=== PATIENT | female | born 1985 | race African-American/Black ===

== ENCOUNTER 2016-12-31 13:15 | Emergency (ER) | payer SELFPAY ==
[~2016-12-31] VITALS: Ht 165.1 cm; Wt 85.7 kg
[2016-12-31] MEDS ORDERED: Ketorolac 30mg Inj IM ONE (13:45)
[2016-12-31 13:56] VITALS: BP 142/99
[2016-12-31] MEDS ORDERED: Norco 5mg/325mg tab ORAL ONE (14:00)
--- NOTE | 2016-12-31 14:39 | Diagnostic Imaging Report ---
Indications: Left shoulder pain Technique: 3 views of the left shoulder Findings: Comparison: None No fracture, dislocation, lytic destruction, periosteal reaction, surrounding soft tissue swelling, or other acute change is demonstrated. No deformity, alignment abnormality, arthritic change, soft tissue calcification, or other chronic change is demonstrated. IMPRESSION: Negative left shoulder series.
--- NOTE | 2016-12-31 14:39 | Diagnostic Imaging Report ---
Indication: Chest pain Technique: PA and lateral views of the chest. Findings: Comparison: None The bones and extra pulmonary soft tissues, cardiomediastinal silhouette, pulmonary vasculature and parenchyma, and pleural surfaces are unremarkable. IMPRESSION: Negative PA and lateral chest radiographs
--- NOTE | 2016-12-31 15:06 | Diagnostic Imaging Report ---
Indications: Neck pain since fall down to the physis there is 2 days ago Technique: Continuous helical CT imaging of the cervical spine performed with automatic exposure was on a Siemens sensation [address] scanner. Axial, coronal and sagittal images reconstructed at 3 mm slice thicknesses. CTDI volume(s): 16 mGy Total DLP: 366 mGy-cm Findings: Comparison: None. Lordotic curvature is right and.Vertebral alignment is intact. No fracture, facet subluxation or dislocation, prevertebral soft tissue swelling, or other acute changes are demonstrated. No degenerative or other chronic changes are demonstrated. IMPRESSION: Straightening of cervical lordosis. This may be secondary to positioning and/or muscular spasm. Otherwise negative noncontrast CT scan of the cervical spine-no other evidence of acute injury. The CT scanner at [facility] is accredited by the [employer] and the scans are performed using protocols designed to limit radiation exposure to as low as reasonably achievable to attain images of sufficient resolution adequate for diagnostic evaluation.
[2016-12-31] MEDS ORDERED: CYCLOBENZAPRINE10 MG ORAL (15:14)
[2016-12-31] MEDS ORDERED: NORCO 5-325 TA1 EAC1 ORAL (15:14)
[2016-12-31] MEDS ORDERED: IBUPROFEN600 MG ORAL (15:14)
[2016-12-31 15:35] VITALS: BP 116/67
--- NOTE | 2016-12-31 22:34 | Emergency Room Report ---
History of Present Illness General Chief Complaint: Pain Source: Patient Present Illness HPI The patient is a 31-year-old female presenting with neck pain, shoulder pain, and rib pain after falling down the stairs last night. She denies hitting her head or loss of consciousness. Pain described as a 10 out of 10 dull ache and does not radiate from these areas. She states that it is difficult to breathe due to the pain. She denies any numbness or tingling. She has tried over-the- counter medications which have not helped with the pain. She denies any other symptoms including nausea, vomiting, dizziness, blurred vision, cough Allergies: Coded Allergies: ACETAMINOPHEN (Verified Allergy, Unknown, 12/31/16) CODEINE (Verified Allergy, Unknown, 12/31/16) KETOROLAC (Verified Allergy, Unknown, 12/31/16) Uncoded Allergies: TYLENOL #3 (Allergy, Unknown, 12/31/16) Patient History Past Medical History: see triage record Pertinent Family History: none Last Menstrual Period: 12/21/16 Reviewed Nursing Documentation: PMH: Agreed, PSxH: Agreed Nursing Documentation-PMH Past Medical History: No History, Except For Review of Systems All Other Systems: negative except mentioned in HPI Physical Exam Vital Signs Date Time Temp Pulse Resp B/P Pulse Ox O2 Delivery O2 Flow Rate FiO2 12/31/16 13:18 98.4 93 20 142/99 97 Room Air Sp02 EP Interpretation: reviewed, normal General Appearance: no apparent distress, alert, GCS 15, non-toxic Head: normocephalic, atraumatic Eyes: bilateral eye PERRL, bilateral eye normal inspection ENT: hearing grossly normal, normal pharynx, no angioedema, normal voice Neck: tender lateral - bilat, tender midline - distal cervical spine Respiratory: normal inspection, lungs clear, normal breath sounds, no accessory muscle use, speaking full sentences, other - TTP over the mid sternum and adjacent ribs Cardiovascular #1: regular rate, rhythm, no edema Gastrointestinal: normal bowel sounds, non tender, soft, non-distended, no guarding, no rebound Musculoskeletal: back normal, gait/station normal, normal range of motion, tender - TTP over the L shoulder diffusely Neurologic: alert, oriented x3, responsive, motor strength/tone normal, sensory intact, speech normal Psychiatric: judgement/insight normal, memory normal, mood/affect normal, no suicidal/homicidal ideation Skin: normal color, no rash, warm/dry, well hydrated Medical Decision Making PA Attestation Dr. Rosales is my supervising physician. Patient management was discussed with my supervising physician Diagnostic Impression: Primary Impression: Muscle spasm Additional Impressions: Rib contusion Qualified Codes: S20.219A - Contusion of unspecified front wall of thorax, initial encounter Left shoulder strain Qualified Codes: S46.912A - Strain of unspecified muscle, fascia and tendon at shoulder and upper arm level, left arm, initial encounter ER Course The patient is a 31-year-old female presenting with neck pain, shoulder pain, and rib pain DDx considered but not limited to: fracture, dislocation, contusion, disc herniation, sprain, among others PE: Initially hypertensive. NAD Head is NC/AT Neck: TTP over bilat paraspinal muscles and midline C spine. No step-offs. Full AROM. TTP over the L trapezius and L shoulder. No deformity. RRR. Lungs CTA bilat. TTP over the mid sternum and adjacent ribs The patient is given pain medication and feels better CT C spine shows straightening only. Xrays unremarkable. She is FL'ed home with ER precautions and pain medication. Chest X-Ray Diagnostic Results Chest X-Ray Diagnostic Results : Chest X-Ray Ordered: Yes # of Views/Limited/Complete: 2 View Indication: Chest Pain EP Interpretation: Yes Interpretation: no consolidation, no effusion, no pneumothorax, no acute cardiopulmonary disease Impression: No acute disease Interpreting ER Provider: Dr. Connie GAGNON Scribe Text I'm acting as scribe for my supervising physician. My supervising physician's interpretation of the 2 view CXR is that there are no acute findings. Other X-Ray Diagnostic Results Other X-Ray Diagnostic Results : X-Ray ordered: L shoulder # of Views/Limited Vs Complete: 3 View Indication: Pain EP Interpretation: Yes Interpretation: no dislocation, no soft tissue swelling, no fractures Impression: No acute disease Interpreting ER Provider: Dr. Connie Matosibcarlos Text I am acting as scribe for my supervising physician. My supervising physician's interpretation of the L shoulder xrays are there are no fractures, dislocations or soft tissue swelling. CT/MRI/US Diagnostic Results CT/MRI/US Diagnostic Results : Imaging Test Ordered: CT C spine Impression Cervical straightening only Last Vital Signs Date Time Temp Pulse Resp B/P Pulse Ox O2 Delivery O2 Flow Rate FiO2 12/31/16 15:35 82 16 116/67 Room Air 12/31/16 15:13 98.4 12/31/16 13:56 97 Status: improved Disposition: HOME, SELF-CARE Condition: Improved Scripts Cyclobenzaprine Hcl* (FLEXERIL*) 10 Mg Tablet 10 MG ORAL THREE TIMES A DAY, #15 TAB Prov: CHAYO NUÑEZATon 12/31/16 Hydrocodone Bit/Acetaminophen 5-325* (NORCO 5-325 TABLET*) 1 Each Tablet 1 TAB ORAL Q6HR Y for For Pain, #10 TAB Prov: CHAYO NUÑEZ.A. 12/31/16 Ibuprofen* (MOTRIN*) 600 Mg Tablet 600 MG ORAL Q8H Y for For Pain, #30 TAB 0 Refills Prov: CHAYO NUÑEZ.ATon 12/31/16 Patient Instructions: Cervical Sprain, Heat Therapy, Rib Contusion Additional Instructions: I discussed my findings with the patient. All questions and concerns have been answered. Treatment and medication compliance have been addressed. I advised the patient that they need to follow up with PMD in 3-5 days. Return to ED if symptoms worsen, new symptoms arise, or if needed for any reason. Patient verbalized understanding of discharge instructions. CHAYO NUÑEZ Dec 31, 2016 22:34
== END 2016-12-31 15:37 | disposition home or self-care (01) ==
LOC: EMR 14:18
DX: M62.838 Other muscle spasm (principal); S20.219A Contusion of unspecified front wall of thorax, initial encounter; S46.912A Strain of unspecified muscle, fascia and tendon at shoulder and upper arm level, left arm, initial encounter; W10.9XXA Fall (on) (from) unspecified stairs and steps, initial encounter; Y93.9 Activity, unspecified; Y92.9 Unspecified place or not applicable; Z88.6 Allergy status to analgesic agent; Z88.8 Allergy status to other drugs, medicaments and biological substances
CPT/HCPCS: 71020; 72125; 99284

== ENCOUNTER 2017-05-06 12:27 | Emergency (ER) | payer MEDICAID ==
[~2017-05-06] VITALS: Ht 167.6 cm; Wt 75.3 kg
[~2017-05-06 12:27] MED LIST: CYCLOBENZAPRINE10 MG ORAL; IBUPROFEN600 MG ORAL; NORCO 5-325 TA1 EAC1 ORAL
[2017-05-06 12:35] VITALS: BP 121/78
[2017-05-06] MEDS ORDERED: TRAMADOL HCL50 MG ORAL (12:53)
[2017-05-06] MEDS ORDERED: Norco 5mg/325mg tab ORAL ONE (13:00)
--- NOTE | 2017-05-06 13:00 | Emergency Room Report ---
History of Present Illness General Chief Complaint: Pain Source: Patient Present Illness HPI The patient is a 31-year-old female presenting for pain after biopsy. She states that she had a lump in her right breast and had a core biopsy taken earlier this week. Pain started the day after and is now a 9/10 dull ache. Worse with touch. Does not radiate. She denies any rash. She denies any fever or chills. She states that she has an appointment for followup the following Wednesday. She states that she was not given any pain medication. She denies any other symptoms Allergies: Coded Allergies: ACETAMINOPHEN (Verified Allergy, Unknown, 12/31/16) CODEINE (Verified Allergy, Unknown, 12/31/16) KETOROLAC (Verified Allergy, Unknown, 12/31/16) Uncoded Allergies: TYLENOL #3 (Allergy, Unknown, 12/31/16) Patient History Past Medical History: see triage record Pertinent Family History: none Reviewed Nursing Documentation: PMH: Agreed, PSxH: Agreed Review of Systems All Other Systems: negative except mentioned in HPI Physical Exam Vital Signs Date Time Temp Pulse Resp B/P (MAP) Pulse Ox O2 Delivery O2 Flow Rate FiO2 05/06/17 12:31 97.3 99 20 121/78 98 Room Air Sp02 EP Interpretation: reviewed, normal General Appearance: no apparent distress, alert, GCS 15, non-toxic Head: normocephalic, atraumatic Eyes: bilateral eye normal inspection, bilateral eye PERRL ENT: hearing grossly normal, normal pharynx, no angioedema, normal voice Neck: full range of motion, supple/symm/no masses Respiratory: chest non-tender, lungs clear, normal breath sounds, speaking full sentences Cardiovascular #1: regular rate, rhythm, no edema Musculoskeletal: back normal, gait/station normal, normal range of motion, non- tender Neurologic: alert, oriented x3, responsive, motor strength/tone normal, sensory intact, speech normal Psychiatric: judgement/insight normal, memory normal, mood/affect normal, no suicidal/homicidal ideation Skin: normal color, no rash, warm/dry, well hydrated, wd healing/no infection noted, laceration - R lateral chest < 1cm wound well healing. No erythema. No edema. No bleeding or DC. TTP Medical Decision Making PA Attestation Dr. Espinosa is my supervising physician. Patient management was discussed with my supervising physician Diagnostic Impression: Primary Impression: Pain after biopsy ER Course The patient is a 31-year-old female presenting for pain after biopsy Differential diagnoses considered but not limited to: wound infection, abscess, cellulitis, pain medication seeking behavior PE: Afebrile. NAD R lateral chest < 1cm wound well healing. No erythema. No edema. No bleeding or DC. TTP Lungs CTA bilat CURES shows [place] prescribed approximately one week prior. The patient is given prescription for tramadol and motrin. Note, the patient states she is allergic to these medications but she is still able to take them without any complications since I am not prescribing norco. She states she does not truly have these allergies. Last Vital Signs Date Time Temp Pulse Resp B/P (MAP) Pulse Ox O2 Delivery O2 Flow Rate FiO2 05/06/17 12:35 97.3 79 20 121/78 98 Room Air Status: improved Disposition: HOME, SELF-CARE Condition: Improved Scripts Ibuprofen* (MOTRIN*) 600 Mg Tablet 600 MG ORAL Q8H Y for For Pain, #30 TAB 0 Refills Prov: CHAYO NUÑEZ.A. 05/06/17 Tramadol Hcl* (ULTRAM*) 50 Mg Tablet 50 MG ORAL Q6H Y for For Pain, #10 TAB 0 Refills Prov: CHAYO NUÑEZ.A. 05/06/17 Additional Instructions: I discussed my findings with the patient. All questions and concerns have been answered. Treatment and medication compliance have been addressed. Return to ED if symptoms worsen, new symptoms arise, or if needed for any reason. Patient verbalized understanding of discharge instructions. Please followup with your doctor on Wednesday (05/11) as you stated you would. CHAYO NUÑEZ May 06, 2017 13:00
[2017-05-06] MEDS ORDERED: IBUPROFEN600 MG ORAL (13:01)
[2017-05-06 13:22] VITALS: BP 121/78
== END 2017-05-06 13:22 | disposition home or self-care (01) ==
LOC: EMR 12:50
DX: G89.18 Other acute postprocedural pain (principal); N64.4 Mastodynia; Z88.6 Allergy status to analgesic agent
CPT/HCPCS: 99283

== ENCOUNTER 2020-08-12 11:56 | Emergency (ER) | payer MEDICAID ==
[~2020-08-12] VITALS: Ht 165.1 cm; Wt 81.6 kg
[~2020-08-12 11:56] MED LIST changes: +TRAMADOL HCL50 MG ORAL
[2020-08-12 13:45] VITALS: BP 148/90
[2020-08-12] MEDS ORDERED: Methocarbamol 500mg tab ORAL ONE (13:45)
--- NOTE | 2020-08-12 13:45 | NUR ---
pt stated she was racing her twin 4 days ago, fell and hurt her lower back. the pain hasn't stopped and she has taken motrin and tylenol.
--- NOTE | 2020-08-12 13:48 | Emergency Room Report ---
History of Present Illness General Chief Complaint: Back Injury Source: Patient Present Illness HPI Patient is a 35-year-old female denies any significant past medical history who presents to the ER complaining of back pain after fall. Patient states that she was hiking and fell 3 days ago. Patient states that she did hit her head but denies any loss of consciousness. She denies any dizziness, nausea or blurry vision. She states that she is not on any blood thinners. Patient states that she has had lower back and posterior hip pain that has not gotten better with medications that she is taking at home. She is taken NSAIDs as well as leftover pain medicine. Allergies: Coded Allergies: ACETAMINOPHEN (Verified Allergy, Unknown, 12/31/16) CODEINE (Verified Allergy, Unknown, 12/31/16) KETOROLAC (Verified Allergy, Unknown, 12/31/16) Uncoded Allergies: TYLENOL #3 (Allergy, Unknown, 12/31/16) COVID-19 Screening Contact w/high risk pt: No Experienced COVID-19 symptoms?: No COVID-19 Testing performed RESIDENTIAL SALES EXECUTIVE: No Patient History Now: No Reviewed Nursing Documentation: PMH: Agreed; PSxH: Agreed Nursing Documentation-PMH Past Medical History: No History, Except For Review of Systems All Other Systems: negative except mentioned in HPI Physical Exam Vital Signs Date Time Temp Pulse Resp B/P (MAP) Pulse Ox O2 Delivery O2 Flow Rate FiO2 08/12/20 12:33 98.1 120 15 148/90 (109) 97 Room Air Sp02 EP Interpretation: reviewed, normal General Appearance: no apparent distress, alert, GCS 15, non-toxic Head: normocephalic, atraumatic Eyes: bilateral eye normal inspection, bilateral eye PERRL ENT: hearing grossly normal, normal pharynx, no angioedema, normal voice Neck: full range of motion, supple/symm/no masses Respiratory: chest non-tender, lungs clear, normal breath sounds, speaking full sentences Cardiovascular #1: regular rate, rhythm, no edema Gastrointestinal: normal bowel sounds, non tender, soft, non-distended, no guarding, no rebound Rectal: deferred, other - No saddle anesthesia Musculoskeletal: other - Diffuse lumbar tenderness to palpation with no step- offs, bilateral posterior hip pain Neurologic: motor strength/tone normal, environmental quality analyst III-XII nml as tested, oriented x3, sensory intact Psychiatric: no suicidal/homicidal ideation Skin: no rash Lymphatic: no adenopathy Medical Decision Making Diagnostic Impression: Primary Impression: Lumbar back pain Additional Impression: Fall ER Course Patient given muscle relaxant. Patient pending CT of the lumbar spine and pelvis to rule out any acute fractures. Patient signed out to oncoming physician at 1400 pending the studies, reevaluation and final disposition. Last Vital Signs Date Time Temp Pulse Resp B/P (MAP) Pulse Ox O2 Delivery O2 Flow Rate FiO2 08/12/20 12:33 98.1 120 15 148/90 (109) 97 Room Air Condition: Unknown Physician Consult: Dr. Luis M MD at 1400 Additional Instructions: Please note that this report is being documented using [employer] technology. This can lead to erroneous entry secondary to incorrect interpretation by the dictating instrument. Sanjuana Wood M.D. Aug 12, 2020 13:48
--- NOTE | 2020-08-12 15:32 | Diagnostic Imaging Report ---
Indication: Pelvic pain status post injury Technique: CT pelvis was performed utilizing automated exposure control without intravenous contrast material. Axial, sagittal and coronal images were generated. CT dose: Total DLP 611.7 mGycm; CTDI vol 12.2 mGy Comparison: None Findings: Bone mineralization within normal limits. No acute fracture or dislocation is identified. Bilateral sacroiliac joints are maintained. Symphysis pubis is maintained. Partially imaged appendix is normal in caliber without periappendiceal inflammatory stranding. Endovaginal tampon. Cervix appears borderline prominent. There is bladder wall thickening which may relate to under distention versus cystitis. IMPRESSION: * No acute fracture or dislocation. * Borderline nonspecific prominence of the cervix. Correlation with findings most recent Pap smear and STUDIO TECHNICIAN follow-up recommended. * Bladder wall thickening which may be related to under distention versus cystitis. Consider correlation with urinalysis. The CT scanner at [facility] is accredited by the [employer] and the scans are performed using protocols designed to limit radiation exposure to as low as reasonably achievable to attain images of sufficient resolution adequate for diagnostic evaluation.
--- NOTE | 2020-08-12 15:37 | Diagnostic Imaging Report ---
Indication: Back pain status post injury Technique: CT lumbar spine was performed utilizing automated exposure control without intravenous contrast material. Axial, sagittal and coronal images were generated. CT dose: Total DLP 611.7 mGycm; CTDI vol 12.2 mGy Comparison: None Findings: There are 5 nonrib-bearing lumbar-type vertebral bodies, assuming 12 paired ribs. Lumbar lordosis is maintained; there is no evidence of spondylolisthesis. Vertebral body heights are maintained; there is no evidence of vertebral body compression fracture. No acute lumbar spine fracture is identified. Some small disc bulges noted at L4-L5 and L5-S1. Imaged portions of the visceral abdomen and pelvis demonstrated a normal caliber abdominal aorta. Calcifications noted in the bilateral lower poles of the kidneys which may represent parenchymal calcifications and/or calyceal stones. No evidence of hydronephrosis bilaterally. IMPRESSION: No evidence of acute fracture or traumatic malalignment. Very mild degenerative changes at L4-5 and L5-S1. Bilateral renal parenchymal calcifications versus nonobstructing stones. No evidence of hydronephrosis bilaterally. The CT scanner at [facility] is accredited by the [employer] and the scans are performed using protocols designed to limit radiation exposure to as low as reasonably achievable to attain images of sufficient resolution adequate for diagnostic evaluation.
[2020-08-12] MEDS ORDERED: HYDROCODON-ACE1 EA15 ORAL (15:54)
--- NOTE | 2020-08-12 15:59 | NUR ---
ER DISCHARGE NOTE: Patient is cleared to be discharged per ERMD, pt is aox4, on room air, with stable vital signs. pt was given dc and prescription instructions, pt was able to verbalize understanding. pt is able to ambulate with steady gait. pt took all belongings.
--- NOTE | 2020-08-12 15:59 | Emergency Room Report ---
Physical Exam Vital Signs Date Time Temp Pulse Resp B/P (MAP) Pulse Ox O2 Delivery O2 Flow Rate FiO2 08/12/20 12:33 98.1 120 15 148/90 (109) 97 Room Air Medical Decision Making Diagnostic Impression: Primary Impression: Lumbar back pain Additional Impressions: Renal calcification Cervix abnormality Fall ER Course Assumed care of the patient from the previous provider at approximately 1400. Please refer to initial note for full history and physical exam. Briefly, 35-year-old female presenting for lower back pain after a fall hiking. CTA pending at time of signout. CTA did not show bony injury or malalignment. Mild degenerative change noted as well as prominent cervix and possible renal calcifications versus nonobstructing stones in the renal poles. Patient provided with copies of CT reports. She will follow up with PLASMA CENTER TECHNICIAN regarding the cervical abnormalities. She has no symptoms of urinary tract infection and likely the thickened bladder wall on CT is secondary to under distention as she used the bathroom just prior to CT. She is already using ibuprofen, Tylenol, Flexeril and lidocaine patches at home. Recommended heat therapy and will provide a short course of breakthrough pain medication. Instructed not to drive or operate machinery on this medication and do not mix medications. She understands and agrees with treatment plan will follow up with outpatient sp ecialist. Last Vital Signs Date Time Temp Pulse Resp B/P (MAP) Pulse Ox O2 Delivery O2 Flow Rate FiO2 08/12/20 13:45 98.1 15 148/90 97 Room Air 08/12/20 12:33 120 Disposition: HOME, SELF-CARE Condition: Stable Scripts Hydrocodone/Acetaminophen 5-325* (HYDROCODONE/ACETAMINOPHEN 5-325*) 1 Each Tablet 1 TAB ORAL Q6H PRN for For Pain, #10 TAB 0 Refills Prov: Phong Asencio MD 08/12/20 Referrals: [facility],REFERRING (PCP) Patient Instructions: Back Pain, Adult Additional Instructions: Follow-up with your PLASMA CENTER TECHNICIAN regarding the CT findings of a prominent cervix. Pap smear and evaluation by PLASMA CENTER TECHNICIAN as recommended. Please follow-up with your primary care doctor in the next 1 to 3 days to discuss this emergency department visit and for reevaluation. If you have any new or worsening symptoms please return to the emergency department for reevaluation. Please note that this report is being documented using [employer] technology. This can lead to erroneous entry secondary to incorrect interpretation by the dictating instrument. Phong Asencio MD Aug 12, 2020 15:59
== END 2020-08-12 16:00 | disposition home or self-care (01) ==
LOC: EMR 14:40
DX: M54.5 Low back pain (principal); N20.0 Calculus of kidney; N88.8 Other specified noninflammatory disorders of cervix uteri; W19.XXXA Unspecified fall, initial encounter; Y93.01 Activity, walking, marching and hiking; Y92.9 Unspecified place or not applicable; Z88.6 Allergy status to analgesic agent
CPT/HCPCS: 72131; 72192; 81025; Z7502; 99284